=== PATIENT | female | born 1985 | race Caucasian/White ===

== ENCOUNTER 2021-07-08 11:52 | Emergency (ER) | payer MEDICAID ==
[~2021-07-08] VITALS: Ht 162.6 cm; Wt 72.7 kg
[2021-07-08 13:00] VITALS: BP 118/73
[2021-07-08 13:11] LABS: URINE BILIRUBIN - DIPSTICK NEGATIVE (NEGATIVE); URINE BLOOD DIPSTICK NEGATIVE (NEGATIVE); URINE COLOR YELLOW; URINE GLUCOSE - DIPSTICK NEGATIVE (NEGATIVE); URINE KETONE NEGATIVE (NEGATIVE); URINE LEUK ESTERASE NEGATIVE (NEGATIVE); URINE PROTEIN - DIPSTICK NEGATIVE (NEG-TRACE); URINE UROBILINOGEN - DIPSTICK 0.2 E.U./dL (0.2)
[2021-07-08 13:15] LABS: URINE NITRITE - DIPSTICK NEGATIVE (Negative)
== END 2021-07-08 14:00 | disposition home or self-care (01) ==
LOC: ED 11:52
DX: R30.0 Dysuria (principal)